=== PATIENT | male | born 1970 | race Caucasian/White ===

== ENCOUNTER 2019-11-13 19:57 | Observation (INO) ==
[2019-11-13] MEDS ORDERED: NORMAL SALINE 1,000 ML IV ONE (20:53)
[2019-11-13] MEDS ORDERED: ONDANSETRON HCL/PF 2 MG/ML VIAL IV ONE (20:53)
--- NOTE | 2019-11-13 20:58 | ERNOTE ---
Headache ER HPI - General Presenting Symptoms: headache Time Seen by Provider: 11/13/19 20:44 Source: patient Exam Limitations: no limitations - Immun/Allergies/Home Medications Immunizations: IMMUNIZATION HX Immunizations Up to Date Yes History of Influenza Vaccine Yes Hx Pneumococcal Vaccination No Allergies/Adverse Reactions: Allergies No Known Allergies Allergy (Unverified 11/13/19 20:34) Home Medications: HOME MEDICATIONS Aspirin Chewable 81 mg PO DAILY 11/13/19 [Last Taken Unknown] - History of Present Illness Narrative: Patient states he has had nausea vomiting since . He feels like every time he tries to swallow something he has substernal pain and he vomits. Today he had vomiting that had "quite a lot" of blood in it that was red. He states he is able to handle liquids and does not have any trouble handling his saliva. He states today he is also had a headache that he attributes to his blood pressure. He has previously been prescribed blood pressure medication but states that "they took away my medical" so I cannot afford it. Activity at onset: other Timing of Headache: gradual Quality: Present: achy Headache frequency: Present: occasional headaches Modifying Factors - (Worsens): Reports: other - eating Review of Systems - Review of Systems Constitutional: Absent: recent illness, fever EYE: Absent: vision changes ENT: Absent: nose congestion, nasal drainage Respiratory: Absent: shortness of breath, cough Cardiology: Present: See HPI, chest pain Gastrointestinal/Abdominal: Present: nausea, vomiting. Absent: diarrhea, abdominal pain Genitourinary: Absent: frequency, dysuria Musculoskeletal: Absent: back pain, muscle pain Skin: Absent: rash Neurological: Present: headache. Absent: dizziness/light-headedness Endocrine: Absent: excessive sweating, flushing Medical History (Last Reviewed 11/13/19 @ 20:56 by Julio Gonzalez DO) Heart attack Hyperlipidemia Hypertension Surgical History: Surgical History (Last Reviewed 11/13/19 @ 20:56 by Julio Gonzalez DO) History of ankle surgery right Hx of heart artery stent Onset Date: Unknown 01/2019 in [place] Family History: Family History (Last Reviewed 11/13/19 @ 20:56 by Julio Gonzalez DO) Mother Recurrent strokes Social History: (Last Reviewed 11/13/19 @ 20:56 by Julio Brodale, DO) Tobacco: Smoking Status: Never smoker Alcohol: alcohol intake: current Alcohol type: beer alcohol intake frequency: 0-2 drinks per day Substance Use: substance use type: does not use Physical Exam - Physical Exam General Appearance: Present: wd/wn, alert, no apparent distress Head Exam: Present: normal inspection, no evidence of injury Eye Exam: Normal inspection: bilateral Neck: Present: normal inspection, supple, full range of motion Respiratory: Present: no respiratory distress, normal breath sounds, lungs clear, chest tenderness - Lower sternum Cardiovascular/Chest: Present: regular rate, rhythm, no murmur Gastrointestinal/Abdominal: Present: normal bowel sounds, nontender, nondistended, soft Back Exam: Present: normal inspection, normal range of motion, no vertebral tenderness Extremity Exam: Present: normal inspection, normal range of motion, no edema Neurological Exam: Present: alert, oriented, normal mood/affect, no motor/sensory deficits Skin Exam: Present: normal color, warm/dry Lymphatic Exam: Present: no adenopathy Progress - Results and Orders Patient's Lab Results:: I have reviewed the patient's lab results. Results and Orders: Laboratory Tests 11/13/19 11/13/19 21:00 21:00 WBC 10.0 Hgb 15.0 Hct 44.3 Plt Count 226 Sodium 137 Potassium 4.2 Chloride 103 Anion Gap 12.7 BUN 18 Creatinine 1.11 Random Glucose 109 Calcium 9.0 Total Bilirubin 0.3 AST 14 ALT 17 L Alkaline Phosphatase 70 Troponin I 0.038 Total Protein 7.1 Amylase 63 Lipase 136 - Vital Signs Patient's Vital Signs:: I have reviewed the patient's vital signs. Vital Signs: Vital Signs 11/13/19 19:58 Temperature 37.0 C Pulse Rate 76 Respiratory Rate 18 Blood Pressure 150/102 H O2 Sat by Pulse Oximetry 99 - X-Ray X-Ray #1 X-Ray: chest Interpretation: Reviewed by me X-ray Comments: IMPRESSION: No active cardiac or pulmonary disease Electronically signed by Digna Schilling MD. X-Ray #2 X-Ray: abdomen Interpretation: Reviewed by me X-ray Comments: IMPRESSION: No evidence for obstruction, generalized ileus nor free air Electronically signed by Digna Schilling MD. - Progress/Reassessment Chief Complaint: Headache Progress Note-Subjective: 11/13/19 23:23 I spoke to the patient about his initial measurable troponin and suggested a repeat patient was okay with that. Upon repeat the level is going up slightly although still in the normal range. I spoke with the patient saying that he has coronary artery disease history and his troponin is trending up I suggested staying overnight for observation and serial enzymes. Patient is not sure if he would like to stay. 11/13/19 23:30 Patient agrees to stay for serial enzymes and telemetry. Spoke with Dr. Talbert he agrees with admit for observation and serial enzymes. Departure Clinical Impression: Chest pain due to CAD - Departure Disposition: Still a patient Condition: Stable
[2019-11-13 21:08] LABS: Hematocrit 44.3 % (42.0-52.0); Mean Cell Volume 100.2 fl (78-100); Mean Corpuscular Hemoglobin 33.9 pg (27-31); Mean Corpuscular Hgb Conc 33.9 g/dl (32-36); Neutrophil # 6.8 K/mm3 (1.3-6.0); Platelet Count 226 K/mm3 (150-450); Red Blood Count 4.42 M/mm3 (4.7-6.0); Red Cell Distribution Width 12.4 % (11.5-14.0)
[2019-11-13 21:27] LABS: Albumin * 3.5 gm/dl (3.4-5.0); Anion Gap 12.7 mmol/L (6.8-13.8); BUN/Creatinine Ratio 16.2 (9.0-21.6); Bilirubin, Total 0.3 mg/dL (0.0-1.1); Ca. Corrected For Albumin 9.1 mg/dL (8.4-10.2); Carbon Dioxide 25.5 mmol/L (24-32.6); Potassium 4.2 mmol/L (3.4-4.6); Total Protein 7.1 gm/dL (6.2-8.2); Troponin I 0.038 ng/mL (0.00-0.10)
[2019-11-13] MEDS ORDERED: LIDOCAINE HCL 20 ML UDC PO ONE (22:00)
[2019-11-13] MEDS ORDERED: SUCRALFATE 1 G/10 ML UDC PO ONE (22:00)
[2019-11-13] MEDS ORDERED: MAG HYDROX/ALUMINUM HYD/SIMETH 30 ML UDC PO ONE (22:00)
[2019-11-14] MEDS ORDERED: KETOROLAC TROMETHAMINE 30 MG/ML VIAL IV ONE (01:38)
--- NOTE | 2019-11-14 08:50 | HPDIS ---
Chief Complaint - Chief Complaint Date of Service: 11/14/19 Time of Service: 08:36 Chief Complaint: Nausea, vomiting, chest pain History of Present Illness: Fred is a 49 yo male that presented to the ER with nausea, vomiting, chest pain, and even believes he vomited blood. He has a history of Coronary Artery Disease. His EKG, xrays, and bloodwork were all relatively normal, but repeat troponin was trending up (although still in the normal range). He had no anemia and no black stools. ER requested he be admitted for serial troponins as his second was higher than his first. Medical History (Last Reviewed 11/13/19 @ 23:57 by Marybel Ochoa RN) Heart attack Hyperlipidemia Hypertension Surgical History: Surgical History (Last Reviewed 11/13/19 @ 23:57 by Marybel Ochoa RN) History of ankle surgery right Hx of heart artery stent Onset Date: Unknown 01/2019 in [place] Family History: Family History (Last Reviewed 11/13/19 @ 20:56 by Julio Gonzalez DO) Mother Recurrent strokes Social History: (Last Reviewed 11/13/19 @ 20:56 by Julio Gonzalez DO) Tobacco: Smoking Status: Never smoker Alcohol: alcohol intake: current Alcohol type: beer alcohol intake frequency: 0-2 drinks per day Substance Use: substance use type: does not use Review Of Systems (GEN) - Review of Systems Generalized/Overall Review: Absent: Weakness, Chills, Fever EENTM: Present: No Symptoms Reported Respiratory: Absent: Cough, Shortness of Breath Cardiac: Present: Chest Pain. Absent: Edema, Palpitations Abdominal: Present: Nausea, Vomiting, Hematemesis. Absent: Abdominal Pain, Constipation, Diarrhea, Melena, Bright blood from rectum Genitourinary: Present: No Symptoms Reported Musculoskeletal: Present: No Symptoms Reported Neurological: Present: Headache Skin: Absent: Lesions, Lumps Endocrine: Absent: Excessive Sweating, Increased Thirst Immunizations: IMMUNIZATION HX Immunizations Up to Date Yes History of Influenza Vaccine Yes Hx Pneumococcal Vaccination No Allergies/Adverse Reactions: Allergies Allergy/AdvReac Type Severity Reaction Status Date / Time No Known Allergies Allergy Unverified 11/13/19 20:34 Home Medications: HOME MEDICATIONS Aspirin Chewable 81 mg PO DAILY 11/13/19 [Last Taken Unknown] Pantoprazole Sodium [Protonix] 40 mg PO DAILY #30 tab 11/14/19 [Last Taken Unknown] Exam - Exam Vital Signs: Vital Signs - Last Taken Temp 36.8 C 11/14/19 06:43 Pulse 63 11/14/19 06:43 Resp 20 11/14/19 06:43 BP 137/89 11/14/19 06:43 Pulse Ox 97 11/14/19 06:43 Constitutional: Present: Alert, Oriented x3, Cooperative ENT Exam: Present: hearing grossly normal Eye Exam: bilateral eye: normal inspection Respiratory: Present: lungs clear, normal breath sounds, no respiratory distress Cardiovascular/Chest: Present: regular rate, rhythm, no murmur Abdomen: Present: Normal bowel sounds, soft, nontender, nondistended Skin Exam: Present: normal color, warm/dry, no cyanosis Lymphatic: Present: no adenopathy Appearance: Present: appropriate appearance, appropriate insight Eye contact: Present: cooperative, good eye contact, normal speech Thoughts: Present: normal thought pattern, no apparent hallucination Diagnostic Studies: Abnormal Lab Results 11/13/19 11/13/19 Range/Units 21:00 21:00 RBC 4.42 L (4.7-6.0) M/mm3 MCV 100.2 H (78-100) fl MCH 33.9 H (27-31) pg Immature Gran % (Auto) 0.50 H (0.001-0.429) % Immature Gran # (Auto) 0.05 H (0.000-0.0310) K/mm3 Neutrophils # 6.8 H (1.3-6.0) K/mm3 ALT 17 L (19-67) U/L Laboratory Results WBC 10.0 K/mm3 (4.0-10.5) 11/13/19 21:00 RBC 4.42 M/mm3 (4.7-6.0) L 11/13/19 21:00 Hgb 15.0 gm/dL (13.5-18.0) 11/13/19 21:00 Hct 44.3 % (42.0-52.0) 11/13/19 21:00 MCV 100.2 fl (78-100) H 11/13/19 21:00 MCH 33.9 pg (27-31) H 11/13/19 21:00 MCHC 33.9 g/dl (32-36) 11/13/19 21:00 RDW 12.4 % (11.5-14.0) 11/13/19 21:00 Plt Count 226 K/mm3 (150-450) 11/13/19 21:00 MPV 10.0 fl (8-11.3) 11/13/19 21:00 Immature Gran % (Auto) 0.50 % (0.001-0.429) H 11/13/19 21:00 Immature Gran # (Auto) 0.05 K/mm3 (0.000-0.0310) H 11/13/19 21:00 Neutrophils % 68.0 % (42-75.0) 11/13/19 21:00 Lymphocytes % 20.1 % (20-51) 11/13/19 21:00 Monocytes % 8.2 % (0.0-9) 11/13/19 21:00 Eosinophils % 2.5 % (0.0-3.0) 11/13/19 21:00 Basophils % 0.7 % (0.0-1.0) 11/13/19 21:00 Nucleated RBC % 0.0 k/mm3 (0-1) 11/13/19 21:00 Neutrophils # 6.8 K/mm3 (1.3-6.0) H 11/13/19 21:00 Lymphocytes # 2.02 k/mm3 (1.5-3.5) 11/13/19 21:00 Monocytes # 0.8 k/mm3 (0.0-1.0) 11/13/19 21:00 Eosinophils # 0.3 k/mm3 (0.0-0.7) 11/13/19 21:00 Absolute Basophils 0.1 k/mm3 (0.0-0.1) 11/13/19 21:00 Sodium 137 mmol/L (132-142) 11/13/19 21:00 Plasma Sodium 137 mmol/L (130-142) 11/13/19 21:00 Potassium 4.2 mmol/L (3.4-4.6) 11/13/19 21:00 Chloride 103 mmol/L (97-106) 11/13/19 21:00 Carbon Dioxide 25.5 mmol/L (24-32.6) 11/13/19 21:00 Anion Gap 12.7 mmol/L (6.8-13.8) 11/13/19 21:00 BUN 18 mg/dL (6-23) 11/13/19 21:00 Creatinine 1.11 mg/dL (0.4-1.4) 11/13/19 21:00 Est GFR (Non-Af Amer) 74 mL/min (60-130) 11/13/19 21:00 BUN/Creatinine Ratio 16.2 (9.0-21.6) 11/13/19 21:00 Random Glucose 109 mg/dL (70-110) 11/13/19 21:00 Calcium 9.0 mg/dL (7.9-10.9) 11/13/19 21:00 Calcium Adj for Albumin 9.1 mg/dL (8.4-10.2) 11/13/19 21:00 Total Bilirubin 0.3 mg/dL (0.0-1.1) 11/13/19 21:00 AST 14 U/L (0-48) 11/13/19 21:00 ALT 17 U/L (19-67) L 11/13/19 21:00 Alkaline Phosphatase 70 U/L (50-170) 11/13/19 21:00 Troponin I 0.041 ng/mL (0.00-0.10) 11/14/19 04:30 Total Protein 7.1 gm/dL (6.2-8.2) 11/13/19 21:00 Albumin 3.5 gm/dl (3.4-5.0) 11/13/19 21:00 Amylase 63 U/L (25-115) 11/13/19 21:00 Lipase 136 U/L (73-393) 11/13/19 21:00 Assessment/Plan - Narrative Narrative: Fred is a 49 yo male with chest pain. His chest pain is likely more GI due to his nausea and vomiting and possible hematemesis. Although his repeat troponin was trending up, although both were in the normal range. He will be admitted to observation with repeat troponin and on telemetry. Will plan to start on PPI as I suspect he has gastritis and likely upper GI bleed. Hemoglobin is normal, no anemia present. - Assessment/Plan (1) Chest pain Problem: Acute (2) Nausea & vomiting Problem: Acute (1) Chest pain Problem: Acute Qualifiers: Chest pain type: other chest pain Qualified Code(s): R07.89 - Other chest pain (2) Nausea & vomiting Problem: Acute Qualifiers: Vomiting type: hematemesis Qualified Code(s): K92.0 - Hematemesis Date of Discharge:: 11/14/19 Hospital Course: Fred was admitted to observation due to nausea, potentially vomiting blood, and chest pain. He had a repeat troponin that was normal but higher than his first. He was admitted on observation and on telemetry. He had serial troponin and it remained normal. He reports being symptom free overnight. He has not had any vomiting and denies nausea and would like to go home. I will send him home with a prescription for pantoprazole for his suspected gastritis, possible with lara camejo tear from his vomiting. He may follow up in a week as needed. Procedures Performed: none Results and Findings: Lab Pending Results 11/13/19 21:00: WBC 10.0, RBC 4.42 L, Hgb 15.0, Hct 44.3, MCV 100.2 H, MCH 33.9 H, MCHC 33.9, RDW 12.4, Plt Count 226, MPV 10.0, Immature Gran % (Auto) 0.50 H, Immature Gran # (Auto) 0.05 H, Neutrophils % 68.0, Lymphocytes % 20.1, Monocytes % 8.2, Eosinophils % 2.5, Basophils % 0.7, Nucleated RBC % 0.0, Neutrophils # 6.8 H, Lymphocytes # 2.02, Monocytes # 0.8, Eosinophils # 0.3, Absolute Basophils 0.1 11/13/19 21:00: Sodium 137, Plasma Sodium 137, Potassium 4.2, Chloride 103, Carbon Dioxide 25.5, Anion Gap 12.7, BUN 18, Creatinine 1.11, Est GFR (Non-Af Amer) 74, BUN/Creatinine Ratio 16.2, Random Glucose 109, Calcium 9.0, Calcium Adj for Albumin 9.1, Total Bilirubin 0.3, AST 14, ALT 17 L, Alkaline Phosphatase 70, Troponin I 0.038, Total Protein 7.1, Albumin 3.5, Amylase 63, Lipase 136 11/13/19 22:50: Troponin I 0.043 11/14/19 04:30: Troponin I 0.041 Discharge Location: Home Disposition: Home self-care Condition: Stable Discharge Activity: Activity as tolerated Discharge Diet: General/regular food Referrals: [facility] [Non Staff Physicians] - (PCP or Talbert in 1 week as needed) Problem Oriented Discharge Instructions to Patient/Family: Gastritis, Adult, [id number] Prescriptions (Any new or edited meds): Pantoprazole Sodium [Protonix] 40 mg PO DAILY #30 tab Transmission Status: Pending to [id number] Complete Home Medications List: Complete Home Medication List: Aspirin Chewable 81 mg PO DAILY 11/13/19 Pantoprazole Sodium [Protonix] 40 mg PO DAILY #30 tab 11/14/19 Forms: Patient Portal Registration
[2019-11-14 09:56] VITALS: BP 142/87
== END 2019-11-14 09:50 | disposition home or self-care (01) ==
LOC: ER 19:57 → MS 19:57
PROVIDERS: ADMIT Family Medicine; ATTEND Family Medicine
DX: I10 Essential (primary) hypertension; K29.71 Gastritis, unspecified, with bleeding; I25.119 Atherosclerotic heart disease of native coronary artery with unspecified angina pectoris; R07.9 Chest pain, unspecified; R11.2 Nausea with vomiting, unspecified
CPT/HCPCS: 36415; 71020; 71046; 74019; 74020; 80053; 82150; 83690; 84484; 85025; 96374; 96375; 99284; 99285; G0378; J2405